=== PATIENT | female | born 1985 | race Caucasian/White ===

== ENCOUNTER 2021-03-03 17:12 | Inpatient (IN) ==
[2021-03-03] MEDS ORDERED: LACTATED RINGER'S 1,000 ML IV PRN (17:26)
[2021-03-03] MEDS ORDERED: OXYTOCIN 30 UNITS/500 ML BAG IV PRN ×2 (17:26→18:28)
--- NOTE | 2021-03-03 17:36 | History & Physical Report ---
Date of Service March 03, 2021 Assessment & Plan (1) Active labor at term: (2) Supervision of elderly multigravida, antepartum: admit, labs, iv. considering epidural. cephalic by us. bp in office today when not in active labor was normal. will get lfts/creat with labs as well. History of Present Illness Chief Complaint: labor Primary Care Provider: NO PCP 36yo at 38+wks ega presents to L&D with above cc. No rom, no vb. +FM. Was 1+ in office with ctx and history of rapid labor, so stayed in area and noted increased ctx and came to L&D. Now 5cm per nurse. Concern re: presentation of fetus. PNC c/b 1. AMA 2. h/o 4hr labor PNL Rh pos, RI, GBS neg OBH: x 2 GYNH: nl paps, no stds Allergies Allergy/AdvReac Type Severity Reaction Status Date / Time No Known Allergies Verified 03/03/21 13:51 Home Medications Medication Instructions Recorded Confirmed Type albuterol sulfate INHALATION PRN 07/28/20 03/03/21 History prenat.vits,daiana,eph-vyld-glghl 1 tab PO DAILY 07/28/20 03/03/21 History buprenorphine HCl 0.25 tab SUBLINGUAL .COMPLEX PRN 12/23/20 03/03/21 History Patient History Medical History (Updated 03/03/21 @ 17:35 by Oma Plunkett MD, FACOG) Asthma Cervical cancer screening Elderly multigravida History of chicken pox Opioid use Surgical History (Updated 07/28/20 @ 15:32 by Ligia Garcia) S/P ACL repair S/P wisdom tooth extraction Family History (Updated 07/28/20 @ 15:34 by Ligia Garcia) Father Hypertension Myocardial infarction Diabetes Denies family history of Ovarian cancer Breast cancer Colorectal cancer Social History (Updated 07/28/20 @ 15:35 by Ligia Garcia) Smoking Status: Former smoker Hx Substance Use: Yes marital status: Single marital status details: Rajan Malhotra (35) [phone] Current Living Situation: Family and Significant Other Current Living Situation Comment: lives with fob, 2 sons, dog, turtle current occupational status: employed current occupation: Mental Health Therapist Review of Systems as per Subjective / HPI Physical Exam Constitutional: WD/WN, vitals as above Respiratory: normal respiratory effort, lungs clear to auscultation Cardiovascular: Rate/Rhythm: regular rate and regular rhythm Gastrointestinal (Abdomen): soft gravid nt Musculoskeletal: +1 pedal edema nontender calves Neurologic: grossly normal Psychiatric: A+Ox3, euthymic affect Genitourinary: OB Exam Abdomen: + vertex (by US) OB Exam Monitor Tracing: + external FHT monitor used (120 mod variability), + external uterine monitor used (q2-3), + category I and + normal FHT variability Results & Data ([facility]) Vital Signs (Past 12 Hours) Vital Signs Pulse BP 03/03/21 17:19 80 179/99 H Coding Level of Care Code None Diagnoses Active labor at term Supervision of elderly multigravida, antepartum O09.529
[2021-03-03] MEDS ORDERED: LIDOCAINE 1% LOCAL 20 ML VIAL ONE (18:02)
[2021-03-03] MEDS ORDERED: ACETAMINOPHEN 325 MG TAB PO PRN (18:28)
[2021-03-03] MEDS ORDERED: oxyCODONE/ACETAMINOPHEN 5mg/325mg TAB PO PRN (18:28)
[2021-03-03] MEDS ORDERED: OXYTOCIN 20 UNITS in LACTATED RINGER'S 1,000 ML IV SCH (18:30)
--- NOTE | 2021-03-03 18:31 | Delivery Summary ---
Vaginal Delivery Summary Date of Service March 03, 2021 Vaginal Delivery Summary VAVD and 2nd Degree LAC The patient dilated to complete and began pushing. SVE C/C/+3. Due to decel to 60s, decision to perform VAVD. Patient and partner informed of need. With one pull with vacuum over one contraction a viable male infant Apgars 8 and 9 via over 2nd degree perineal laceration. Body cord noted and shoulders and body delivered rapidly thereafter. Infant was vigorous and crying at . Mouth and nose bulb suctioned. Cord clamped at 30 seconds of life and to maternal abdomen where the cord was then doubly clamped and cut. Placenta delivered spontaneously and intact, three-vessel cord. Hemostasis achieved with dilute pitocin and uterine massage. Cervix and sulci intact. Laceration repaired in usual fashion with 3-0 vicryl in usual fashion after 1% local lidocaine anesthesia. EBL 300 cc. Mother and baby stable recovery. [facility] Vaginal Delivery Charge Vaginal Delivery Codes: 47751 global code for the antepartum, delivery, and post- Delivery Type Details: VAVD and 2nd Degree LAC
[2021-03-03] MEDS ORDERED: DIPHTHERIA/TETANUS/PERTUSSIS 0.5 ML SYR/VIAL IM ONE (19:30)
[2021-03-03] MEDS ORDERED: SUPERCREAM 0.870% 15 GM JAR EXT PRN (19:30)
[2021-03-03] MEDS ORDERED: BENZOCAINE 20% AER SPR 82.5 GM CAN EXT PRN (19:30)
[2021-03-03] MEDS ORDERED: HYDROCORTISONE ACETATE 25 MG SUPP PR PRN (19:30)
[2021-03-03 19:38] LABS: Alanine Aminotransferase 16 U/L (12-78); Albumin Level 2.7 gm/dl (3.4-5.0); Aspartate Aminotransferase 26 U/L (15-37); BUN Creatinine Ratio 9.1 (10-20); Blood Urea Nitrogen 5 mg/dl (7-18); Calcium 8.4 mg/dl (8.5-10.1); Carbon Dioxide 20 mmol/L (21-32); Chloride 109 mmol/L (98-107); Creatinine Clr Calc Pharmacy 120.5 ml/min; Est GFR (African American) 137.4 ml/min; Est GFR (Non-African American) 118.6 ml/min; Glucose 85 mg/dl (70-99); Sodium 137 mmol/L (136-145)
[2021-03-03 19:41] LABS: Albumin Globulin Ratio 0.7 (0.9-2); Alkaline Phosphatase 282 U/L (45-117); Bilirubin Direct < 0.1 mg/dl (0-0.2); Bilirubin,Total 0.4 mg/dl (0.2-1); Globulin 3.8 gm/dl (2.5-4.0); Total Protein 6.5 gm/dl (6.4-8.2)
[2021-03-03 20:32] LABS: Hemoglobin 12.8 g/dL (12.0-16.0); Mean Corpuscular Hemoglobin 32.2 pg (25-34); Mean Corpuscular Hgb Conc 34.6 g/dL (32-36); Mean Corpuscular Volume 93.2 fL (80-100); Mean Platelet Volume 10.5 fL (7.4-10.4); Platelet Count 224 K/uL (130-400); RDW Coefficient of Variation 13.8 % (11.5-14.5); RDW Standard Deviation 46.4 fL (36.4-46.3); Red Blood Count 3.97 M/uL (4.2-5.4); White Blood Count 15.54 K/uL (4.8-10.8)
[2021-03-03] MEDS: IBUPROFEN 600 MG TAB PO PRN (21:03)
[2021-03-03] MEDS: DOCUSATE SODIUM 100 MG CAP PO SCH (23:03)
[2021-03-04] MEDS: IBUPROFEN 600 MG TAB PO PRN ×5 (03:37→23:23)
--- NOTE | 2021-03-04 05:56 | Obstetrical Progress Note ---
Date of Service March 04, 2021 Assessment & Plan (1) Encounter for care and examination after delivery: 36 yo F PPD#1 following at 38+ weeks. Doing well and without complaints. _ feeding. Ambulating and voiding without difficulty. Continue routine care; discharge later today _. Subjective 36 yo F ; PPD # 1 following vaginal delivery at 38+weeks (delivered at 6:13PM 03/03); doing well this AM; _ abdominal cramping/pain; voiding _well, _passing gas but no BM; tolerating meals overnight, able to ambulate some within the room. Some persistent spotting this morning but improved from yesterday. Review of Systems Constitutional: denies fever, chills, sweats, headache Respiratory: denies SOB, difficulty breathing Cardiac: denies CP, chest palpitations, chest pressure Breast: denies breast pain : denies dysuria Physical Exam General: patient is alert and oriented, in NAD Cardiac: +S1/S2, no murmurs rubs or gallops Respiratory: lungs CTA b/l, anteriorly and posteriorly, no wheezes rales or rhonchi, no increased work of breathing, symmetric chest rise, no respiratory distress Abdomen: soft, NT, +bowel sounds Uterus: uterine fundus firm, palpable _cm below the umbilicus Lower Extremities: no LE edema or swelling, no deep calf pain, Shin's sign negative b/l Results & Data ([facility]) Vital Signs (Past 12 Hours) Vital Signs Temp Pulse Pulse Resp BP BP Pulse Ox 03/04/21 03:30 36.9 C 78 18 128/78 98 03/03/21 23:00 36.9 C 83 16 118/78 03/03/21 20:26 73 152/88 H 03/03/21 20:11 76 151/87 H 03/03/21 19:56 81 144/95 H 03/03/21 19:41 81 145/86 H 03/03/21 19:26 70 157/84 H 03/03/21 19:11 71 155/100 H 03/03/21 18:56 80 149/94 H 03/03/21 18:47 78 144/92 H 03/03/21 18:25 74 137/97
--- NOTE | 2021-03-04 06:39 | Obstetrical Progress Note ---
Date of Service March 04, 2021 Assessment & Plan (1) Encounter for care and examination after delivery: (2) Buprenorphine maintenance treatment affecting , antepartum: (3) hypertension: (4) Carpal tunnel syndrome during : stable, routine care. discussed swelling and that will take few wks to resolve. will try to order neutral position splints. reassured about and keep getting baby to breast to stimulate milk. bp was issue labor and immed pp, ? gest htn, labs ok. bps now normal. will monitor. due to her subutex and baby duration of stay, pt states will stay full 48hr. rh pos, ri, . Day #:: 1 Subjective Ambulation: ambulating normally Voiding: no voiding problems Diet Tolerance:: regular diet Lochia:: Small Feeding Type:: breast feeding having carpel tunnel sx and difficulty last night with feeding baby due to hands numb. also feels like not making any milk she has swelling. Physical Exam Constitutional WD/WN, vitals as above Respiratory normal respiratory effort, lungs clear to auscultation Cardiovascular Rate/Rhythm: regular rate and regular rhythm Gastrointestinal (Abdomen) Inspection/Auscultation: abdomen normal to inspection Percussion/Palpation: abdomen soft; abdomen nontender Fundus firm 2cm down Musculoskeletal nt calves +1 edema Neurologic grossly normal Psychiatric A+Ox3, euthymic affect Results & Data ([facility]) Vital Signs (Past 12 Hours) Vital Signs Temp Pulse Pulse Resp BP BP Pulse Ox 03/04/21 03:30 98.4 F 78 18 128/78 98 03/03/21 23:00 98.4 F 83 16 118/78 03/03/21 20:26 73 152/88 H 03/03/21 20:11 76 151/87 H 03/03/21 19:56 81 144/95 H 03/03/21 19:41 81 145/86 H 03/03/21 19:26 70 157/84 H 03/03/21 19:11 71 155/100 H 03/03/21 18:56 80 149/94 H 03/03/21 18:47 78 144/92 H
[2021-03-04] MEDS: DOCUSATE SODIUM 100 MG CAP PO SCH ×2 (08:26→20:47)
[2021-03-04] MEDS: PRENATAL VITAMIN 1 TAB PO SCH (08:26)
[2021-03-04] MEDS: buprenorphine HCL 2 MG SUBL SL SCH (08:27)
--- NOTE | 2021-03-05 06:57 | Obstetrical Progress Note ---
Date of Service March 05, 2021 Assessment & Plan (1) hypertension: Has resolved at this time, normal BP for last 24 hr (2) Carpal tunnel syndrome during : Bothering patient a lot this AM. Discussed splints, should improve as edema resolves. (3) Encounter for care and examination after delivery: PPD2 and doing well, plans to go to [facility] status given baby here for 5 day obs re: buprenorphine use. Subjective Ambulation: ambulating normally Voiding: no voiding problems Passing Gas:: Yes Diet Tolerance:: regular diet Lochia:: Small Feeding Type:: bottle feeding Current Pain Level(1-10): 0 Physical Exam Constitutional WD/WN, vitals as above Eyes PERRL, conjunctivae normal, anicteric sclerae ENMT external ear and nose normal, oropharynx normal Neck trachea midline, no thyromegaly Respiratory normal respiratory effort and able to speak in complete sentences; no respiratory distress, no labored breathing and does not use accessory muscles Cardiovascular Rate/Rhythm: regular rate and regular rhythm Extremities: no calf tenderness and no pedal edema Gastrointestinal (Abdomen) Inspection/Auscultation: abdomen normal to inspection Musculoskeletal no cyanosis or clubbing, extremities motor strength 5/5 Skin no rashes, warm and dry Neurologic patellar DTR's 2+ bilat, sensation intact Psychiatric A+Ox3, euthymic affect Genitourinary Speculum/Bimanual Exam: uterus nontender OB Exam Abdomen: + fundal height (at umbilicus) Fundus: + firm Results & Data ([facility]) Vital Signs (Past 12 Hours) Vital Signs Temp Pulse Resp BP Pulse Ox 03/04/21 23:15 98.1 F 67 16 135/83 99
[2021-03-05] MEDS: IBUPROFEN 600 MG TAB PO PRN ×3 (07:59→18:23)
[2021-03-05] MEDS: PRENATAL VITAMIN 1 TAB PO SCH (08:14)
[2021-03-05] MEDS: DOCUSATE SODIUM 100 MG CAP PO SCH (08:14)
[2021-03-05] MEDS: buprenorphine HCL 2 MG SUBL SL SCH (08:49)
--- NOTE | 2021-03-08 21:29 | Discharge Summary ---
Date of Service Date of admission: March 03, 2021 Date of discharge: March 05, 2021 Admission HPI Per Admitting Provider 36yo at 38+wks ega presents to L&D with painful regular contractions. No rom, no vb. +FM. Was 1+ in office with ctx and history of rapid labor, so stayed in area and noted increased ctx and came to L&D. Now 5cm per nurse. Concern re: presentation of fetus- confirmed cephalic by u/s. PNC c/b 1. AMA 2. h/o 4hr labor PNL Rh pos, RI, GBS neg OBH: x 2 GYNH: nl paps, no stds Hospital Course (1) Buprenorphine maintenance treatment affecting , antepartum: (2) Encounter for care and examination after delivery: (3) Supervision of elderly multigravida, antepartum: Patient was admitted and progressed rapidly. Due to bradycardia with 2nd stage, vacuum assistance recommended and accepted by couple. Resulted in delivery. See delivery note for details. Some elevated blood pressures peripartum noted, with normal labs and monitoring. Blood pressure normalized. Had persistent symptoms of carpel tunnel of . Ready for discharge home on PPD#2 and instructions reviewed and followup discussed. Went to [facility] due to her baby not discharged due to her use of subutex in . Coding Level of Care Code None Diagnoses Buprenorphine maintenance treatment affecting , antepartum O99.320; F11.20 Encounter for care and examination after delivery Z39.2 Supervision of elderly multigravida, antepartum O09.529
== END 2021-03-05 18:53 | disposition home or self-care (01) | DRG 806 ==
LOC: OPB 17:12 → 4S1 17:15 → 4N 21:08